=== PATIENT | female | born 1990 | race Two or more races ===

== ENCOUNTER 2018-01-16 12:13 | Emergency (ER) | payer OTHER ==
[~2018-01-16] VITALS: Ht 167.6 cm; Wt 70.3 kg
[~2018-01-16 12:13] MED LIST: IBUPROFEN800 MG PO
== END 2018-01-16 17:17 | disposition home or self-care (01) ==
LOC: ER 12:13
DX: O46.8X1 Other antepartum hemorrhage, first trimester (principal); Z34.01 Encounter for supervision of normal first pregnancy, first trimester